=== PATIENT | male | born 1965 | race Caucasian/White ===

== ENCOUNTER 2016-10-16 10:51 | Emergency (ER) | payer BC ==
[~2016-10-16] VITALS: Ht 195.6 cm; Wt 104.3 kg
[~2016-10-16 10:51] MED LIST: TAMIFLU 75MG75 MG PO
[2016-10-16] MEDS ORDERED: METFORMIN HCL500 M3 PO (11:12)
[2016-10-16] MEDS ORDERED: VALSARTAN-HCTZ1 EAC2 PO (11:12)
[2016-10-16] MEDS ORDERED: JANUVIA100 M1 PO (11:13)
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
[2016-10-16 12:23] VITALS: BP 115/67
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
== END 2016-10-16 12:30 ==
LOC: ERH 10:51
DX: S63.92XA Sprain of unspecified part of left wrist and hand, initial encounter (principal); S63.602A Unspecified sprain of left thumb, initial encounter; V89.2XXA Person injured in unspecified motor-vehicle accident, traffic, initial encounter
CPT/HCPCS: 73130-LT